=== PATIENT | female | born 1975 ===

== ENCOUNTER 2017-12-08 16:53 | Emergency (ER) | payer OTHER ==
[2017-12-08 17:02] VITALS: BMI 26.4
[2017-12-08 17:15] VITALS: TEMP 99.2
[2017-12-08] MEDS ORDERED: Sodium Chloride 0.9% 1,000 ML IV STA (17:43)
--- NOTE | 2017-12-08 17:43 | ED PDOC ---
Arrival/HPI - General Chief Complaint: Chest Pain Time Seen by Provider: 12/08/17 17:40 Historian: Patient - History of Present Illness Narrative History of Present Illness (Text): 12/08/17 17:40 42 year old female, with no significant past medical history, presents to the emergency department complaining of headache, intermittent chest pain, intermittent shortness of breath, and leg pain x 3 months. Patient notes associated nausea since yesterday. Patient denies any fever, chills, vomiting, diarrhea, back pain, neck pain, dizziness, or any other complaints. Time/Duration: Other (3 months) Symptom Onset: Gradual Symptom Course: Unchanged Activities at Onset: Light Context: Home Past Medical History - Provider Review Nursing Documentation Reviewed: Yes - Past History Past History: No Previous - Infectious Disease Hx of Infectious Diseases: None - Gastrointestinal Hx Diverticulitis: Yes - Psychiatric Hx Depression: No Hx Substance Use: No - Surgical History Hx Section: Yes (x2) - Anesthesia Hx Anesthesia: Yes Hx Anesthesia Reactions: No - Suicidal Assessment Feels Threatened In Home Enviroment: No Family/Social History - Physician Review Nursing Documentation Reviewed: Yes Family/Social History: Unknown Family HX Smoking Status: Never Smoked Hx Alcohol Use: No Hx Substance Use: No Allergies/Home Meds Allergies/Adverse Reactions: Allergies No Known Allergies Allergy (Verified 05/29/16 10:42) Review of Systems - Physician Review All systems were reviewed & negative as marked: Yes - Review of Systems Constitutional: Normal Eyes: Normal ENT: Normal Respiratory: SOB. absent: Cough Cardiovascular: Chest Pain Gastrointestinal: Nausea. absent: Abdominal Pain, Diarrhea, Vomiting Genitourinary Female: Normal. absent: Dysuria, Frequency Musculoskeletal: Other (bilateral leg pain). absent: Back Pain, Neck Pain Skin: Normal. absent: Rash Neurological: Headache Endocrine: Normal Hemo/Lymphatic: Normal Psychiatric: Normal Physical Exam Vital Signs Reviewed: Yes Vital Signs Temp Pulse Resp BP Pulse Ox 12/08/17 20:51 18 98 12/08/17 20:43 81 18 107/82 97 12/08/17 17:14 99.2 F 110 H 19 116/56 L 95 Temperature: Afebrile Blood Pressure: Normal Pulse: Tachycardic Respiratory Rate: Normal Appearance: Positive for: Well-Appearing, Non-Toxic, Comfortable Pain Distress: None Mental Status: Positive for: Alert and Oriented X 3 - Systems Exam Head: Present: Atraumatic, Normocephalic Pupils: Present: PERRL Extroacular Muscles: Present: EOMI Conjunctiva: Present: Normal Mouth: Present: Moist Mucous Membranes Neck: Present: Normal Range of Motion Respiratory/Chest: Present: Clear to Auscultation, Good Air Exchange. No: Respiratory Distress, Accessory Muscle Use Cardiovascular: Present: Regular Rate and Rhythm, Normal S1, S2. No: Murmurs Abdomen: No: Tenderness, Distention, Peritoneal Signs Back: Present: Normal Inspection Upper Extremity: Present: Normal Inspection. No: Cyanosis, Edema Lower Extremity: Present: Normal Inspection. No: Edema Neurological: Present: GCS=15, CN II-XII Intact, Speech Normal Skin: Present: Warm, Dry, Normal Color. No: Rashes Psychiatric: Present: Alert, Oriented x 3, Normal Insight, Normal Concentration Medical Decision Making ED Course and Treatment: 12/08/17 17:46 Impression: 42 year old female presents to the emergency department complaining of sob, cp, headache, and leg pain x 3 months. Plan: -- Labs -- Chest X-ray -- CT Brain -- EKG -- D Dimer -- Tylenol -- Reglan -- Sodioum Chloride -- Urinalysis -- Cardiac Enzymes -- Reassess and disposition Progress Notes: 12/08/17 20:15 Upon reevaluation, patient feels better. Radiology and labs are unremarkable. Patien tto be d/c and instructed to follow up with clinic. - Lab Interpretations Microbiology Results: Microbiology Results 12/08/17 17:47 Urine,Clean Catch Urine Culture - Final <10,000 CFU/ML. MULTIPLE SPECIES. PROBABLE CONTAMINATION. Lab Results: 12/08/17 17:47 12/08/17 17:47 Lab Results 12/08/17 17:47: Sodium 139, Potassium 4.1, Chloride 105, Carbon Dioxide 20 L, Anion Gap 18, BUN 7, Creatinine 0.7, Est GFR ( Amer) > 60, Est GFR (Non- Af Amer) > 60, Random Glucose 106, Calcium 9.8, Magnesium 2.2, Total Bilirubin 0.4, AST 23, ALT 27, Alkaline Phosphatase 83, Lactate Dehydrogenase 429, Total Creatine Kinase 94, Troponin I < 0.01, Total Protein 8.1, Albumin 4.5, Globulin 3.6, Albumin/Globulin Ratio 1.3 12/08/17 17:47: D-Dimer, Quantitative < 200 12/08/17 17:47: WBC 9.0, RBC 4.44, Hgb 13.4, Hct 37.4, MCV 84.2, MCH 30.2, MCHC 35.8, RDW 13.6, Plt Count 221, MPV 10.2, Gran % 70.4 H, Lymph % (Auto) 18.9 L, [place] % (Auto) 10.3 H, Eos % (Auto) 0.3 L, Baso % (Auto) 0.1, Gran # 6.31, Lymph # (Auto) 1.7, Mobile # (Auto) 0.9 H, Eos # (Auto) 0.0, Baso # (Auto) 0.01 12/08/17 17:45: Urine Color Straw, Urine Appearance Clear, Urine pH 7.5, Ur Specific Crane <= 1.005, Urine Protein Negative, Urine Glucose (UA) Negative, Urine Ketones Negative, Urine Blood Trace-intact H, Urine Nitrate Negative, Urine Bilirubin Negative, Urine Urobilinogen 0.2, Ur Leukocyte Esterase Small H , Urine RBC 0 - 2, Urine WBC 0 - 2, Ur Epithelial Cells 0 - 2, Urine Bacteria Neg - RAD Interpretation Radiology Orders: 12/08/17 17:41 CHEST ONE VIEW [RAD] Stat 12/08/17 17:43 Brain [HEAD W/O CONTRAST] [CT] Stat - Medication Orders Current Medication Orders: Discontinued Medications Acetaminophen (Tylenol 325mg Tab) 650 mg PO STAT STA Stop: 12/08/17 17:45 Last Admin: 12/08/17 18:06 Dose: 650 mg MAR Pain/Vitals Document 12/08/17 18:06 OCS (Rec: 12/08/17 18:06 OCS [id number]) Pain Reassessment Is This A Pain ReAssessment? No Sleep Is patient sleeping during reassessment? No Presence of Pain Presence of Pain Yes Pain Scale Used Pain Scale Used Numeric Location Pain Location Body Supplier Manager Description Constant Intensity 9 Scale Used Numeric Aggravating Factors ADL's Sodium Chloride (Sodium Chloride 0.9%) 1,000 mls @ 999 mls/hr IV .Q1H1M STA Stop: 12/08/17 18:43 Last Admin: 12/08/17 18:05 Dose: 999 mls/hr eMAR Start Stop Document 12/08/17 18:05 OCS (Rec: 12/08/17 18:05 OCS [id number]) Intravenous Solution Start Date 12/08/17 Start Time 18:05 End Date 12/08/17 End time 19:06 Total Infusion Time 61 Metoclopramide HCl (Reglan) 10 mg IVP STAT STA Stop: 12/08/17 17:43 Last Admin: 12/08/17 18:05 Dose: 10 mg IVP Administration Document 12/08/17 18:05 OCS (Rec: 12/08/17 18:05 OCS [id number]) Charges for Administration # of IVP Administrations 1 - Scribe Statement The provider has reviewed the documentation as recorded by the Scribe Mikaela Mckinley All medical record entries made by the Scribe were at my direction and personally dictated by me. I have reviewed the chart and agree that the record accurately reflects my personal performance of the history, physical exam, medical decision making, and the department course for this patient. I have also personally directed, reviewed, and agree with the discharge instructions and disposition. Disposition/Present on Arrival - Present on Arrival Any Indicators Present on Arrival: No History of DVT/PE: No History of Uncontrolled Diabetes: No Urinary Catheter: No History of Decub. Ulcer: No History Surgical Site Infection Following: None - Disposition Have Diagnosis and Disposition been Completed?: No Diagnosis: Headache, Musculoskeletal chest pain Disposition: HOME/ ROUTINE Disposition Time: 20:51 Patient Plan: Discharge Condition: GOOD Discharge Instructions (ExitCare): Headache, Adult (DC), Costochondritis (DC), Chest Pain (ED) Prescriptions: Ibuprofen [Motrin] 600 mg PO Q6 5 Days #20 tab Forms: [employer] (Thai)
[2017-12-08 18:00] LABS: PH,URINE 7.5 (4.7-8.0); URINE APPEARANCE CLEAR (CLEAR); URINE BILIRUBIN NEGATIVE (NEGATIVE); URINE BLOOD TRACE-INTACT (NEGATIVE); URINE COLOR STRAW (YELLOW); URINE GLUCOSE (UA) NEGATIVE (NEGATIVE); URINE LEUKOCYTE ESTERASE SMALL Leu/uL (NEGATIVE); URINE PROTEIN NEGATIVE mg/dL (<30 mg/dL); URINE UROBILINOGEN 0.2 E.U./dL (<1 E.U./dL)
[2017-12-08 18:11] LABS: BASO # 0.01 K/mm3 (0.0-2.0); BASO % 0.1 % (0.0-3.0); EOS % 0.3 % (1.5-5.0); GRAN # 6.31 (1.4-6.5); GRAN % 70.4 % (50.0-68.0); HEMOGLOBIN 13.4 g/dL (12.0-16.0); LYMPH # 1.7 (1.2-3.4); LYMPH % 18.9 % (22.0-35.0); MEAN CELL VOLUME 84.2 fl (80.0-105.0); MEAN CORPUSCULAR HEMOGLOBIN 30.2 pg (25.0-35.0); MEAN CORPUSCULAR HGB CONC 35.8 g/dl (31.0-37.0); MEAN PLATELET VOLUME 10.2 fl (7.0-11.0); MONO # 0.9 (0.1-0.6); MONO % 10.3 % (1.0-6.0); RBC 4.44 10^6/uL (3.5-6.1); RED CELL DISTRIBUTION WIDTH 13.6 % (11.5-14.5)
[2017-12-08 18:16] LABS: URINE EPITHELIAL CELLS 0 - 2 /hpf (0-5); URINE RBC 0 - 2 /hpf (0-2); URINE WBC 0 - 2 /hpf (0-6)
[2017-12-08 18:17] LABS: URINE BACTERIA NEG (NEG)
[2017-12-08 18:21] LABS: ALB/GLOB RATIO 1.3 (1.1-1.8); ALBUMIN 4.5 g/dL (3.0-4.8); ALT/SGPT 27 U/L (7-56); AST/SGOT 23 U/L (14-36); BLOOD UREA NITROGEN 7 mg/dL (7-21); CALCIUM 9.8 mg/dL (8.4-10.5); GFR AFRICAN-AMERICAN > 60; GFR NON-AFRICAN AMERICAN > 60
[2017-12-08 18:33] LABS: TROPONIN I < 0.01 ng/mL
--- NOTE | 2017-12-08 18:42 | CT ---
Date of service: 12/08/2017 PROCEDURE: CT HEAD WITHOUT CONTRAST. HISTORY: headache for three months r/o Mass COMPARISON: None available. TECHNIQUE: Axial computed tomography images were obtained through the head/brain without intravenous contrast. Radiation dose: Total exam DLP = 787.7 mGy-cm. This CT exam was performed using one or more of the following dose reduction techniques: Automated exposure control, adjustment of the mA and/or kV according to patient size, and/or use of iterative reconstruction technique. FINDINGS: HEMORRHAGE: No intracranial hemorrhage. BRAIN: No mass effect or edema. No atrophy or chronic microvascular ischemic changes. VENTRICLES: Unremarkable. No hydrocephalus. CALVARIUM: Unremarkable. PARANASAL SINUSES: Unremarkable as visualized. No significant inflammatory changes. MASTOID AIR CELLS: Unremarkable as visualized. No inflammatory changes. OTHER FINDINGS: None. IMPRESSION: No acute intracranial pathology.
--- NOTE | 2017-12-08 18:43 | RAD ---
Date of service: 12/08/2017 PROCEDURE: CHEST RADIOGRAPH, 1 VIEW HISTORY: chest pain COMPARISON: None available. FINDINGS: LUNGS: Clear. PLEURA: No pneumothorax or pleural fluid seen. CARDIOVASCULAR: Normal. OSSEOUS STRUCTURES: No significant abnormalities. VISUALIZED UPPER ABDOMEN: Normal. OTHER FINDINGS: None. IMPRESSION: No active disease.
--- NOTE | 2017-12-08 20:16 | CARD ---
APPROVED REPORT Date of service: 12/08/2017 EKG Measurement Heart [id number] MD [id number] <Conclusion> Sinus tachycardia Possible Left atrial enlargement Borderline ECG
[2017-12-08 20:43] VITALS: BP 107/82; PULSE 81; RESP 18
[2017-12-08 20:51] VITALS: O2SAT 98
== END 2017-12-08 20:50 | disposition home or self-care (01) ==
LOC: ED 16:53
DX: R51 Headache (principal); R07.89 Other chest pain
CPT/HCPCS: 70450; 71045; 80053; 81001; 82550; 83615; 83735; 84484; 85025; 85378; 87086; 93005; 96361; 96374; 99283; J2765; J7030